=== PATIENT | male | born 1990 | race American Indian/Alaskan Native ===

== ENCOUNTER 2020-01-07 17:08 | Observation (INO) | payer BC ==
[~2020-01-07 17:08] MED LIST: Sodium Chloride 0.9% 1,000 ML IV ONE
[2020-01-07 17:24] LABS: BASE EXCESS ARTERIAL 2 mmol/L ((-2)-(+3)); O2 DELIVERY DEVICE ROOM AIR; O2 SATURATION ARTERIAL 96 % (95-100); PCO2 ARTERIAL 37 mmHg (35-45); PO2 ARTERIAL 81 mmHg (70-100)
[2020-01-07 17:28] LABS: ALLEN TEST pos; O2 FLOW RATE 0
--- NOTE | 2020-01-07 17:52 | EDM.PDOC ---
ED HPI GENERAL MEDICAL PROBLEM - General Stated Complaint: AMBULANCE Time Seen by Provider: 01/07/20 17:48 Source of Information: Reports: Patient History Limitations: Reports: No Limitations - History of Present Illness INITIAL COMMENTS - FREE TEXT/NARRATIVE: This 29 yo male patient was brought to the ED by SLAJosh from the [facility] due to a blood sugar level of 707 at the clinic. The patient reports he has not been feeling well for the past month, but has been attempting to drink extra water and gatorade for possible dehydration. The patient reports he has not had any health problems in the past, but his grandmother has diabetes. The [facility] reports the patient had a negative COVID test on Monday. Today, the patient A1C was 14.6 during the clinic visit. The patient reports he is currently extremely thirsty and feels run down. Onset: Unknown/Unsure Duration: Week(s):, Constant Location: Reports: Generalized Quality: Reports: Other Severity: Moderate Improves with: Reports: None Worsens with: Reports: None Context: Reports: Other - Related Data Allergies Allergy/AdvReac Type Severity Reaction Status Date / Time No Known Allergies Allergy Verified 02/18/15 21:31 Home Meds: Home Meds . [No Known Home Meds] 06/10/13 [History] Past Medical History - Past Health History Medical/Surgical History: Denies Medical/Surgical History Other Gastrointestinal History: Appendix removed - Infectious Disease History Infectious Disease History: Reports: Chicken Pox Social & Family History - Family History Family Medical History: Noncontributory - Tobacco Use Smoking Status *Q: Never Smoker Second Hand Smoke Exposure: Yes - Caffeine Use Caffeine Use: Reports: None - Alcohol Use Date of Last Drink: 01/04/20 - Recreational Drug Use Recreational Drug Use: Yes Recreational Drug Type: Reports: Marijuana/Hashish ED ROS GENERAL - Review of Systems Review Of Systems: Comprehensive ROS is negative, except as noted in HPI. ED EXAM, GENERAL - Physical Exam Exam: See Below Exam Limited By: No Limitations General Appearance: Alert, WD/WN, Moderate Distress, Obese Eye Exam: Bilateral Eye: EOMI, Normal Inspection, PERRL Ears: Normal External Exam, Normal Canal, Hearing Grossly Normal, Normal TMs Nose: Normal Inspection Throat/Mouth: Normal Inspection, Normal Lips, Normal Teeth, Normal Gums, Normal Oropharynx, Normal Voice, No Airway Compromise Head: Atraumatic, Normocephalic Neck: Normal Inspection, Supple, Non-Tender, Full Range of Motion Respiratory/Chest: No Respiratory Distress, Lungs Clear, Normal Breath Sounds, No Accessory Muscle Use, Chest Non-Tender Cardiovascular: Normal Peripheral Pulses, Regular Rate, Rhythm, No Edema, No Gallop, No JVD, No Murmur, No Rub GI/Abdominal: Normal Bowel Sounds, Soft, Non-Tender, No Organomegaly, No Distention, No Abnormal Bruit, No Mass (Male) Exam: Deferred Rectal (Males) Exam: Deferred Back Exam: Normal Inspection, Full Range of Motion, NT Extremities: Normal Inspection, Normal Range of Motion, Non-Tender, Normal Capillary Refill, No Pedal Edema Neurological: Alert, Oriented, CN II-XII Intact, Normal Cognition, Normal Gait, Normal Reflexes, No Motor/Sensory Deficits Psychiatric: Normal Affect, Normal Mood Skin Exam: Warm, Dry, Intact, Normal Color, No Rash Lymphatic: No Adenopathy Course - Vital Signs Last Recorded V/S: Last Vital Signs Temp 36.2 C 01/07/20 17:08 Pulse 109 H 01/07/20 17:08 Resp 18 01/07/20 17:08 BP 158/96 H 01/07/20 17:08 Pulse Ox 97 01/07/20 17:08 - Orders/Labs/Meds Orders: Active Orders 24 hr Category Date Time Status Admission Diagnosis [ADT] Urgent ADT 01/07/20 18:17 Ordered Admission Status [Patient Status] [ADT] Routine ADT 01/07/20 18:17 Ordered Glucose [Blood Glucose Check, Bedside] [RC] ONETIME Care 01/07/20 17:04 Ordered Labs: Laboratory Tests 01/07/20 01/07/20 01/07/20 Range/Units 17:10 17:10 17:20 WBC 11.3 H (5.0-10.0) 10^3/uL RBC 6.01 (4.6-6.2) 10^6/uL Hgb 16.4 (14.0-18.0) g/dL Hct 47.4 (40.0-54.0) % MCV 78.9 L (80-100) fL MCH 27.3 (27.0-34.0) pg MCHC 34.6 (33.0-35.0) g/dL Plt Count 312 (150-450) 10^3/uL Neut % (Auto) 71.7 (42.2-75.2) % Lymph % (Auto) 20.4 L (20.5-50.1) % [place] % (Auto) 6.5 (2-8) % Eos % (Auto) 0.9 L (1.0-3.0) % Baso % (Auto) 0.5 (0.0-1.0) % ABG pH 7.45 (7.35-7.45) ABG pCO2 37 (35-45) mmHg ABG pO2 81 (70-100) mmHg ABG HCO3 25.0 (22-26) mmol/L ABG O2 Saturation 96 (95-100) % ABG Base Excess 2 ((-2)-(+3)) mmol/L [place] Test pos O2 Delivery Device Room air Oxygen Flow Rate 0 Sodium 128 L (136-145) mmol/L Potassium 4.1 (3.5-5.1) mmol/L Chloride 91 L (98-107) mmol/L Carbon Dioxide 25 (21-32) mmol/L Anion Gap 16.1 H (7-13) mEq/L BUN 13 (7-18) mg/dL Creatinine 1.22 (0.70-1.30) mg/dL Est Cr Clr Drug Dosing 99.83 mL/min Estimated GFR (MDRD) > 60 BUN/Creatinine Ratio 10.7 (No establ ref range) Glucose 567 H* (74-99) mg/dL Calcium 9.8 (8.5-10.1) mg/dL Total Bilirubin 1.2 H (0.2-1.0) mg/dL AST 69 H (15-37) U/L ALT 199 H (16-63) U/L Alkaline Phosphatase 211 H (46-116) U/L Total Protein 9.5 H (6.4-8.2) g/dL Albumin 3.8 (3.4-5.0) g/dL Globulin 5.7 Albumin/Globulin Ratio 0.7 Urine Color (YELLOW) Urine Appearance (CLEAR) Urine pH (5.0-9.0) Ur Specific [place] (1.005-1.030) Urine Protein (NEGATIVE) Urine Glucose (UA) (NEGATIVE) Urine Ketones (NEGATIVE) Urine Occult Blood (NEGATIVE) Urine Nitrite (NEGATIVE) Urine Bilirubin (NEGATIVE) Urine Urobilinogen (0.2-1.0) mg/dL Ur Leukocyte Esterase (NEGATIVE) Urine Opiates Screen (NEGATIVE) Ur Oxycodone Screen (NEGATIVE) Urine Methadone Screen (NEGATIVE) Ur Barbiturates Screen (NEGATIVE) U Tricyclic Antidepress (NEGATIVE) Ur Phencyclidine Scrn (NEGATIVE) Ur Amphetamine Screen (NEGATIVE) U Methamphetamines Scrn (NEGATIVE) Urine MDMA Screen (NEGATIVE) U Benzodiazepines Scrn (NEGATIVE) Urine Cocaine Screen (NEGATIVE) U Marijuana (THC) Screen (NEGATIVE) Ketones Positive 01/07/20 01/07/20 Range/Units 17:50 17:50 WBC (5.0-10.0) 10^3/uL RBC (4.6-6.2) 10^6/uL Hgb (14.0-18.0) g/dL Hct (40.0-54.0) % MCV (80-100) fL MCH (27.0-34.0) pg MCHC (33.0-35.0) g/dL Plt Count (150-450) 10^3/uL Neut % (Auto) (42.2-75.2) % Lymph % (Auto) (20.5-50.1) % [place] % (Auto) (2-8) % Eos % (Auto) (1.0-3.0) % Baso % (Auto) (0.0-1.0) % ABG pH (7.35-7.45) ABG pCO2 (35-45) mmHg ABG pO2 (70-100) mmHg ABG HCO3 (22-26) mmol/L ABG O2 Saturation (95-100) % ABG Base Excess ((-2)-(+3)) mmol/L [place] Test O2 Delivery Device Oxygen Flow Rate Sodium (136-145) mmol/L Potassium (3.5-5.1) mmol/L Chloride (98-107) mmol/L Carbon Dioxide (21-32) mmol/L Anion Gap (7-13) mEq/L BUN (7-18) mg/dL Creatinine (0.70-1.30) mg/dL Est Cr Clr Drug Dosing mL/min Estimated GFR (MDRD) BUN/Creatinine Ratio (No establ ref range) Glucose (74-99) mg/dL Calcium (8.5-10.1) mg/dL Total Bilirubin (0.2-1.0) mg/dL AST (15-37) U/L ALT (16-63) U/L Alkaline Phosphatase (46-116) U/L Total Protein (6.4-8.2) g/dL Albumin (3.4-5.0) g/dL Globulin Albumin/Globulin Ratio Urine Color Yellow (YELLOW) Urine Appearance Clear (CLEAR) Urine pH 5.0 (5.0-9.0) Ur Specific [place] 1.010 (1.005-1.030) Urine Protein Negative (NEGATIVE) Urine Glucose (UA) 500 H (NEGATIVE) Urine Ketones 15 H (NEGATIVE) Urine Occult Blood Negative (NEGATIVE) Urine Nitrite Negative (NEGATIVE) Urine Bilirubin Negative (NEGATIVE) Urine Urobilinogen 0.2 (0.2-1.0) mg/dL Ur Leukocyte Esterase Negative (NEGATIVE) Urine Opiates Screen Negative (NEGATIVE) Ur Oxycodone Screen Negative (NEGATIVE) Urine Methadone Screen Negative (NEGATIVE) Ur Barbiturates Screen Negative (NEGATIVE) U Tricyclic Antidepress Negative (NEGATIVE) Ur Phencyclidine Scrn Negative (NEGATIVE) Ur Amphetamine Screen Negative (NEGATIVE) U Methamphetamines Scrn Negative (NEGATIVE) Urine MDMA Screen Negative (NEGATIVE) U Benzodiazepines Scrn Negative (NEGATIVE) Urine Cocaine Screen Negative (NEGATIVE) U Marijuana (THC) Screen Negative (NEGATIVE) Ketones Meds: Medications Discontinued Medications Generic Name Dose Route Start Last Admin Trade Name Freq PRN Reason Stop Dose Admin Sodium Chloride 1,000 mls @ 999 mls/hr 01/07/20 17:04 01/07/20 17:10 Normal Saline IV 01/07/20 18:04 999 mls/hr .BOLUS ONE Administration Departure - Departure Time of Disposition: 18:20 Disposition: DC/Tfer to Acute Hospital 02 Condition: Fair Clinical Impression: Hyperglycemia - Discharge Information *PRESCRIPTION DRUG MONITORING PROGRAM REVIEWED*: Not Applicable *COPY OF PRESCRIPTION DRUG MONITORING REPORT IN PATIENT SCOTT: Not Applicable Care Plan Goals: Discussed the patient's history, examination, lab results and treatments with Dr. Rivera. Dr. Rivera accepted the patient for continued evaluation and management as an observation patient at [facility] in [place]. Sepsis Event Note (ED) - Evaluation Sepsis Screening Result: No Definite Risk - Focused Exam Vital Signs: Vital Signs Temp Pulse Resp BP Pulse Ox 07/28/20 17:08 36.2 C 109 H 18 158/96 H 97 - My Orders Last 24 Hours: My Active Orders 01/07/20 17:04 Glucose [Blood Glucose Check, Bedside] [RC] ONETIME 01/07/20 18:17 Admission Diagnosis [ADT] Urgent Admission Status [Patient Status] [ADT] Routine - Assessment/Plan Last 24 Hours: My Active Orders 01/07/20 17:04 Glucose [Blood Glucose Check, Bedside] [] ONETIME 01/07/20 18:17 Admission Diagnosis [ADT] Urgent Admission Status [Patient Status] [ADT] Routine
[2020-01-07 17:53] LABS: ANION GAP 16.1 mEq/L (7-13); CHLORIDE,CL 91 mmol/L (98-107); SODIUM,NA 128 mmol/L (136-145)
[2020-01-07] MEDS ORDERED: Acetaminophen 325 MG Tab PO PRN (19:26)
--- NOTE | 2020-01-07 19:38 | PCM.HP ---
H&P History of Present Illness - General Date of Service: 01/07/20 Admit Problem/Dx: Admission Diagnosis/Problem Admission Diagnosis/Problem Diabetes mellitus Source of Information: Patient - History of Present Illness Initial Comments - Free Text/Narative: Patient presented to the emergency room referred from the clinic because of hypoglycemia. He indicates that for the past couple of weeks he has been having polyuria, polydipsia and polyphagia. He will has been feeling dehydrated despite drinking a lot of water. His blood sugar was checked and found to be about 700. Patient was given insulin 12 units short acting and sent to the emergency room. Patient has no prior history of diabetes mellitus. There is a family history of diabetes. Denies cough or wheezing. No headache or blurring of vision. No dysuria. No fever chills or rigors. - Related Data Allergies/Adverse Reactions: Allergies Allergy/AdvReac Type Severity Reaction Status Date / Time No Known Allergies Allergy Verified 01/07/20 18:41 Home Medications: Home Meds . [No Known Home Meds] 06/10/13 [History] Past Medical History - Past Health History Medical/Surgical History: Denies Medical/Surgical History Gastrointestinal History: Reports: Cholelithiasis Other Gastrointestinal History: Appendix removed - Infectious Disease History Infectious Disease History: Reports: Chicken Pox - Past Surgical History GI Surgical History: Reports: Cholecystectomy Social & Family History - Family History Family Medical History: Noncontributory - Tobacco Use Smoking Status *Q: Never Smoker Second Hand Smoke Exposure: No - Caffeine Use Caffeine Use: Reports: None - Alcohol Use Number of Drinks Per Day: 1 Date of Last Drink: 01/03/20 Time of Last Drink: 20:00 - Recreational Drug Use Recreational Drug Use: No Recreational Drug Type: Reports: Marijuana/Hashish H&P Review of Systems - Review of Systems: Review Of Systems: See Below General: Reports: Weakness, Fatigue HEENT: Reports: No Symptoms Pulmonary: Reports: No Symptoms Cardiovascular: Reports: No Symptoms Gastrointestinal: Reports: No Symptoms Genitourinary: Reports: No Symptoms Psychiatric: Reports: No Symptoms Neurological: Reports: No Symptoms Exam - Exam Exam: See Below - Vital Signs Vital Signs: Last Vital Signs Temp 36.4 C 01/07/20 18:41 Pulse 100 01/07/20 18:41 Resp 16 01/07/20 18:41 BP 164/103 H 01/07/20 18:41 Pulse Ox 96 01/07/20 18:41 Weight: 154.221 kg - Exam General: Alert, Oriented, Cooperative, Other ( morbid obesity) HEENT: PERRLA, Hearing Intact, Mucosa Moist & [place], Nares Patent, Normal Nasal Septum, Posterior Pharynx Clear, Conjunctiva Clear, EOMI, EACs Clear, TMs Clear Neck: Supple, Trachea Midline, 2 Lungs: Clear to Auscultation, Normal Respiratory Effort Cardiovascular: Regular Rate, Regular Rhythm (Male) Exam: Normal Inspection, Normal Prostate, Circumcised Skin: Warm, Dry, Intact - Patient Data Lab Results Last 24 hrs: Laboratory Results - last 24 hr 01/07/20 01/07/20 01/07/20 Range/Units 17:10 17:10 17:20 WBC 11.3 H (5.0-10.0) 10^3/uL RBC 6.01 (4.6-6.2) 10^6/uL Hgb 16.4 (14.0-18.0) g/dL Hct 47.4 (40.0-54.0) % MCV 78.9 L (80-100) fL MCH 27.3 (27.0-34.0) pg MCHC 34.6 (33.0-35.0) g/dL Plt Count 312 (150-450) 10^3/uL Neut % (Auto) 71.7 (42.2-75.2) % Lymph % (Auto) 20.4 L (20.5-50.1) % [place] % (Auto) 6.5 (2-8) % Eos % (Auto) 0.9 L (1.0-3.0) % Baso % (Auto) 0.5 (0.0-1.0) % ABG pH 7.45 (7.35-7.45) ABG pCO2 37 (35-45) mmHg ABG pO2 81 (70-100) mmHg ABG HCO3 25.0 (22-26) mmol/L ABG O2 Saturation 96 (95-100) % ABG Base Excess 2 ((-2)-(+3)) mmol/L [place] Test pos O2 Delivery Device Room air Oxygen Flow Rate 0 Sodium 128 L (136-145) mmol/L Potassium 4.1 (3.5-5.1) mmol/L Chloride 91 L (98-107) mmol/L Carbon Dioxide 25 (21-32) mmol/L Anion Gap 16.1 H (7-13) mEq/L BUN 13 (7-18) mg/dL Creatinine 1.22 (0.70-1.30) mg/dL Est Cr Clr Drug Dosing 99.83 mL/min Estimated GFR (MDRD) > 60 BUN/Creatinine Ratio 10.7 (No establ ref range) Glucose 567 H* (74-99) mg/dL Calcium 9.8 (8.5-10.1) mg/dL Total Bilirubin 1.2 H (0.2-1.0) mg/dL AST 69 H (15-37) U/L ALT 199 H (16-63) U/L Alkaline Phosphatase 211 H (46-116) U/L Total Protein 9.5 H (6.4-8.2) g/dL Albumin 3.8 (3.4-5.0) g/dL Globulin 5.7 Albumin/Globulin Ratio 0.7 Urine Color (YELLOW) Urine Appearance (CLEAR) Urine pH (5.0-9.0) Ur Specific [place] (1.005-1.030) Urine Protein (NEGATIVE) Urine Glucose (UA) (NEGATIVE) Urine Ketones (NEGATIVE) Urine Occult Blood (NEGATIVE) Urine Nitrite (NEGATIVE) Urine Bilirubin (NEGATIVE) Urine Urobilinogen (0.2-1.0) mg/dL Ur Leukocyte Esterase (NEGATIVE) Urine Opiates Screen (NEGATIVE) Ur Oxycodone Screen (NEGATIVE) Urine Methadone Screen (NEGATIVE) Ur Barbiturates Screen (NEGATIVE) U Tricyclic Antidepress (NEGATIVE) Ur Phencyclidine Scrn (NEGATIVE) Ur Amphetamine Screen (NEGATIVE) U Methamphetamines Scrn (NEGATIVE) Urine MDMA Screen (NEGATIVE) U Benzodiazepines Scrn (NEGATIVE) Urine Cocaine Screen (NEGATIVE) U Marijuana (THC) Screen (NEGATIVE) Ketones Positive 01/07/20 01/07/20 Range/Units 17:50 17:50 WBC (5.0-10.0) 10^3/uL RBC (4.6-6.2) 10^6/uL Hgb (14.0-18.0) g/dL Hct (40.0-54.0) % MCV (80-100) fL MCH (27.0-34.0) pg MCHC (33.0-35.0) g/dL Plt Count (150-450) 10^3/uL Neut % (Auto) (42.2-75.2) % Lymph % (Auto) (20.5-50.1) % [place] % (Auto) (2-8) % Eos % (Auto) (1.0-3.0) % Baso % (Auto) (0.0-1.0) % ABG pH (7.35-7.45) ABG pCO2 (35-45) mmHg ABG pO2 (70-100) mmHg ABG HCO3 (22-26) mmol/L ABG O2 Saturation (95-100) % ABG Base Excess ((-2)-(+3)) mmol/L [place] Test O2 Delivery Device Oxygen Flow Rate Sodium (136-145) mmol/L Potassium (3.5-5.1) mmol/L Chloride (98-107) mmol/L Carbon Dioxide (21-32) mmol/L Anion Gap (7-13) mEq/L BUN (7-18) mg/dL Creatinine (0.70-1.30) mg/dL Est Cr Clr Drug Dosing mL/min Estimated GFR (MDRD) BUN/Creatinine Ratio (No establ ref range) Glucose (74-99) mg/dL Calcium (8.5-10.1) mg/dL Total Bilirubin (0.2-1.0) mg/dL AST (15-37) U/L ALT (16-63) U/L Alkaline Phosphatase (46-116) U/L Total Protein (6.4-8.2) g/dL Albumin (3.4-5.0) g/dL Globulin Albumin/Globulin Ratio Urine Color Yellow (YELLOW) Urine Appearance Clear (CLEAR) Urine pH 5.0 (5.0-9.0) Ur Specific [place] 1.010 (1.005-1.030) Urine Protein Negative (NEGATIVE) Urine Glucose (UA) 500 H (NEGATIVE) Urine Ketones 15 H (NEGATIVE) Urine Occult Blood Negative (NEGATIVE) Urine Nitrite Negative (NEGATIVE) Urine Bilirubin Negative (NEGATIVE) Urine Urobilinogen 0.2 (0.2-1.0) mg/dL Ur Leukocyte Esterase Negative (NEGATIVE) Urine Opiates Screen Negative (NEGATIVE) Ur Oxycodone Screen Negative (NEGATIVE) Urine Methadone Screen Negative (NEGATIVE) Ur Barbiturates Screen Negative (NEGATIVE) U Tricyclic Antidepress Negative (NEGATIVE) Ur Phencyclidine Scrn Negative (NEGATIVE) Ur Amphetamine Screen Negative (NEGATIVE) U Methamphetamines Scrn Negative (NEGATIVE) Urine MDMA Screen Negative (NEGATIVE) U Benzodiazepines Scrn Negative (NEGATIVE) Urine Cocaine Screen Negative (NEGATIVE) U Marijuana (THC) Screen Negative (NEGATIVE) Ketones Result Diagrams: 01/07/20 17:10 01/07/20 17:10 Problem List Initiated/Reviewed/Updated: Yes Orders Last 24hrs: Active Orders 24 hr Category Date Time Status Admission Diagnosis [ADT] Urgent ADT 01/07/20 18:17 Ordered Admission Status [Patient Status] [ADT] Routine ADT 01/07/20 18:17 Active Patient Status [ADT] Routine ADT 01/07/20 19:26 Active Blood Glucose Check, Bedside [RC] QIDACANDBED Care 01/07/20 19:26 Active Diabetes Education [RC] Click to Edit Care 01/07/20 19:29 Active Glucose [Blood Glucose Check, Bedside] [RC] ONETIME Care 01/07/20 17:04 Active Intake and Output [RC] QSHIFT Care 01/07/20 19:27 Active Oxygen Therapy [RC] PRN Care 01/07/20 19:26 Active Up ad Janet [RC] ASDIRECTED Care 01/07/20 19:26 Active VTE/DVT Education [RC] PER UNIT ROUTINE Care 01/07/20 19:26 Active Vital Signs [RC] Q4H Care 01/07/20 19:26 Active Consistent Carbohydrate Diet [DIET] Diet 01/07/20 Dinner Active BASIC METABOLIC PANEL,BMP [CHEM] AM Lab 01/08/20 05:11 Ordered Acetaminophen [Tylenol] Med 01/07/20 19:26 Ordered 650 mg PO Q4H PRN Enoxaparin [Lovenox] Med 01/08/20 09:00 Ordered 40 mg SUBCUT DAILY Insulin Glarg,Human.Rec.Analog [LantUS] Med 01/07/20 21:00 Ordered 30 unit SUBCUT BEDTIME Insulin Lispro [HumaLOG] Med 01/08/20 08:00 Ordered 10 unit SUBCUT TIDMEALS Insulin Lispro [HumaLOG] Med 01/07/20 19:30 Ordered See Protocol SUBCUT ASDIRECTED Sodium Chloride 0.9% [Normal Saline] 1,000 ml Med 01/07/20 19:30 Ordered IV ASDIRECTED Glucose Management Sub Q Reflex [OM.PC] Click to Edit Oth 01/07/20 19:26 Ordered Resuscitation Status Routine Resus Stat 01/07/20 19:26 Ordered Medication Orders Acetaminophen (Tylenol) 650 mg PO Q4H PRN PRN Reason: Pain (Mild 1-3)/fever Enoxaparin Sodium (Lovenox) 40 mg SUBCUT DAILY AVEL Sodium Chloride (Normal Saline) 1,000 mls @ 200 mls/hr IV ASDIRECTED AVEL Insulin Glargine (Lantus) 30 unit SUBCUT BEDTIME AVEL Insulin Human Lispro (Humalog) 10 unit SUBCUT TIDMEALS AVEL Insulin Human Lispro (Humalog) 0 unit SUBCUT ASDIRECTED AVEL; Protocol Assessment/Plan Comment:: Assessmen/plan #. Diabetes mellitus type 2 Patient has no prior history of diabetes. Newly diagnosed Hemoglobin A1c was 14. #. Hyponatremia Serum sodium is 128 This is as a result of hypoglycemia #. Morbid obesity BMI is 43 Plan: Admit patient to medical floor Start patient on aggressive intravenous fluid with normal saline going at 200 mL an hour Obtain repeat basic metabolic panel Give patient insulin Lantus 30 units now Start insulin NovoLog 10 units with meals Insulin sliding scale We'll plan for diabetic education. Patient's medical chart reviewed. Discussed with emergency room physician hearing aid assistant
[2020-01-07] MEDS: Insulin Glarg,Human.Rec.Analog 100 Unit/ML SUBCUT SCH (20:01)
[2020-01-07] MEDS: Sodium Chloride 0.9% 1,000 ML IV SCH (20:04)
[2020-01-07] MEDS: Insulin Lispro 100 Units/ML 3 ML Vial SUBCUT SCH (20:55)
[2020-01-08] MEDS: Sodium Chloride 0.9% 1,000 ML IV SCH ×3 (03:11→17:11)
[2020-01-08 07:00] LABS: ANION GAP 9.9 mEq/L (7-13); CHLORIDE,CL 99 mmol/L (98-107); SODIUM,NA 134 mmol/L (136-145)
[2020-01-08] MEDS: Insulin Lispro 100 Units/ML 3 ML Vial SUBCUT SCH ×7 (09:14→20:52)
[2020-01-08] MEDS: Enoxaparin 40 MG/0.4 ML Syringe SUBCUT SCH (09:16)
--- NOTE | 2020-01-08 09:56 | PCM.PN ---
- General Info Date of Service: 01/08/20 Subjective Update: Doing well, blood sugars improved No hypoglycemia symptoms No shortness of breath, no chest pain Functional Status: Reports: Tolerating Diet - Review of Systems General: Denies: Fever Pulmonary: Denies: Shortness of Breath Cardiovascular: Denies: Chest Pain, Edema Gastrointestinal: Denies: Abdominal Pain Genitourinary: Denies: Dysuria - Patient Data Vitals - Most Recent: Last Vital Signs Temp 99.1 F 01/08/20 08:00 Pulse 93 01/08/20 08:00 Resp 20 01/08/20 08:00 BP 130/85 01/08/20 08:00 Pulse Ox 99 01/08/20 08:00 Weight - Most Recent: 340 lb I&O - Last 24 Hours: Intake & Output 01/07/20 01/08/20 01/08/20 22:59 06:59 14:59 Intake Total 550 1805 609 Output Total 1100 Balance 550 705 609 Lab Results Last 24 Hours: Laboratory Results - last 24 hr 01/07/20 01/07/20 01/07/20 Range/Units 17:10 17:10 17:20 WBC 11.3 H (5.0-10.0) 10^3/uL RBC 6.01 (4.6-6.2) 10^6/uL Hgb 16.4 (14.0-18.0) g/dL Hct 47.4 (40.0-54.0) % MCV 78.9 L (80-100) fL MCH 27.3 (27.0-34.0) pg MCHC 34.6 (33.0-35.0) g/dL Plt Count 312 (150-450) 10^3/uL Neut % (Auto) 71.7 (42.2-75.2) % Lymph % (Auto) 20.4 L (20.5-50.1) % [place] % (Auto) 6.5 (2-8) % Eos % (Auto) 0.9 L (1.0-3.0) % Baso % (Auto) 0.5 (0.0-1.0) % ABG pH 7.45 (7.35-7.45) ABG pCO2 37 (35-45) mmHg ABG pO2 81 (70-100) mmHg ABG HCO3 25.0 (22-26) mmol/L ABG O2 Saturation 96 (95-100) % ABG Base Excess 2 ((-2)-(+3)) mmol/L [place] Test pos O2 Delivery Device Room air Oxygen Flow Rate 0 Sodium 128 L (136-145) mmol/L Potassium 4.1 (3.5-5.1) mmol/L Chloride 91 L (98-107) mmol/L Carbon Dioxide 25 (21-32) mmol/L Anion Gap 16.1 H (7-13) mEq/L BUN 13 (7-18) mg/dL Creatinine 1.22 (0.70-1.30) mg/dL Est Cr Clr Drug Dosing 99.83 mL/min Estimated GFR (MDRD) > 60 BUN/Creatinine Ratio 10.7 (No establ ref range) Glucose 567 H* (74-99) mg/dL POC Glucose (70-105) mg/dl Calcium 9.8 (8.5-10.1) mg/dL Total Bilirubin 1.2 H (0.2-1.0) mg/dL AST 69 H (15-37) U/L ALT 199 H (16-63) U/L Alkaline Phosphatase 211 H (46-116) U/L Total Protein 9.5 H (6.4-8.2) g/dL Albumin 3.8 (3.4-5.0) g/dL Globulin 5.7 Albumin/Globulin Ratio 0.7 Urine Color (YELLOW) Urine Appearance (CLEAR) Urine pH (5.0-9.0) Ur Specific [place] (1.005-1.030) Urine Protein (NEGATIVE) Urine Glucose (UA) (NEGATIVE) Urine Ketones (NEGATIVE) Urine Occult Blood (NEGATIVE) Urine Nitrite (NEGATIVE) Urine Bilirubin (NEGATIVE) Urine Urobilinogen (0.2-1.0) mg/dL Ur Leukocyte Esterase (NEGATIVE) Urine Opiates Screen (NEGATIVE) Ur Oxycodone Screen (NEGATIVE) Urine Methadone Screen (NEGATIVE) Ur Barbiturates Screen (NEGATIVE) U Tricyclic Antidepress (NEGATIVE) Ur Phencyclidine Scrn (NEGATIVE) Ur Amphetamine Screen (NEGATIVE) U Methamphetamines Scrn (NEGATIVE) Urine MDMA Screen (NEGATIVE) U Benzodiazepines Scrn (NEGATIVE) Urine Cocaine Screen (NEGATIVE) U Marijuana (THC) Screen (NEGATIVE) Ketones Positive 01/07/20 01/07/2020 Range/Units 17:50 17:50 20:03 WBC (5.0-10.0) 10^3/uL RBC (4.6-6.2) 10^6/uL Hgb (14.0-18.0) g/dL Hct (40.0-54.0) % MCV (80-100) fL MCH (27.0-34.0) pg MCHC (33.0-35.0) g/dL Plt Count (150-450) 10^3/uL Neut % (Auto) (42.2-75.2) % Lymph % (Auto) (20.5-50.1) % [place] % (Auto) (2-8) % Eos % (Auto) (1.0-3.0) % Baso % (Auto) (0.0-1.0) % ABG pH (7.35-7.45) ABG pCO2 (35-45) mmHg ABG pO2 (70-100) mmHg ABG HCO3 (22-26) mmol/L ABG O2 Saturation (95-100) % ABG Base Excess ((-2)-(+3)) mmol/L [place] Test O2 Delivery Device Oxygen Flow Rate Sodium (136-145) mmol/L Potassium (3.5-5.1) mmol/L Chloride (98-107) mmol/L Carbon Dioxide (21-32) mmol/L Anion Gap (7-13) mEq/L BUN (7-18) mg/dL Creatinine (0.70-1.30) mg/dL Est Cr Clr Drug Dosing mL/min Estimated GFR (MDRD) BUN/Creatinine Ratio (No establ ref range) Glucose (74-99) mg/dL POC Glucose 390 H (70-105) mg/dl Calcium (8.5-10.1) mg/dL Total Bilirubin (0.2-1.0) mg/dL AST (15-37) U/L ALT (16-63) U/L Alkaline Phosphatase (46-116) U/L Total Protein (6.4-8.2) g/dL Albumin (3.4-5.0) g/dL Globulin Albumin/Globulin Ratio Urine Color Yellow (YELLOW) Urine Appearance Clear (CLEAR) Urine pH 5.0 (5.0-9.0) Ur Specific [place] 1.010 (1.005-1.030) Urine Protein Negative (NEGATIVE) Urine Glucose (UA) 500 H (NEGATIVE) Urine Ketones 15 H (NEGATIVE) Urine Occult Blood Negative (NEGATIVE) Urine Nitrite Negative (NEGATIVE) Urine Bilirubin Negative (NEGATIVE) Urine Urobilinogen 0.2 (0.2-1.0) mg/dL Ur Leukocyte Esterase Negative (NEGATIVE) Urine Opiates Screen Negative (NEGATIVE) Ur Oxycodone Screen Negative (NEGATIVE) Urine Methadone Screen Negative (NEGATIVE) Ur Barbiturates Screen Negative (NEGATIVE) U Tricyclic Antidepress Negative (NEGATIVE) Ur Phencyclidine Scrn Negative (NEGATIVE) Ur Amphetamine Screen Negative (NEGATIVE) U Methamphetamines Scrn Negative (NEGATIVE) Urine MDMA Screen Negative (NEGATIVE) U Benzodiazepines Scrn Negative (NEGATIVE) Urine Cocaine Screen Negative (NEGATIVE) U Marijuana (THC) Screen Negative (NEGATIVE) Ketones 01/07/20 01/08/20 01/08/20 Range/Units 20:51 06:17 07:39 WBC (5.0-10.0) 10^3/uL RBC (4.6-6.2) 10^6/uL Hgb (14.0-18.0) g/dL Hct (40.0-54.0) % MCV (80-100) fL MCH (27.0-34.0) pg MCHC (33.0-35.0) g/dL Plt Count (150-450) 10^3/uL Neut % (Auto) (42.2-75.2) % Lymph % (Auto) (20.5-50.1) % [place] % (Auto) (2-8) % Eos % (Auto) (1.0-3.0) % Baso % (Auto) (0.0-1.0) % ABG pH (7.35-7.45) ABG pCO2 (35-45) mmHg ABG pO2 (70-100) mmHg ABG HCO3 (22-26) mmol/L ABG O2 Saturation (95-100) % ABG Base Excess ((-2)-(+3)) mmol/L [place] Test O2 Delivery Device Oxygen Flow Rate Sodium 134 L (136-145) mmol/L Potassium 3.9 (3.5-5.1) mmol/L Chloride 99 (98-107) mmol/L Carbon Dioxide 29 (21-32) mmol/L Anion Gap 9.9 (7-13) mEq/L BUN 12 (7-18) mg/dL Creatinine 0.92 (0.70-1.30) mg/dL Est Cr Clr Drug Dosing 132.38 mL/min Estimated GFR (MDRD) > 60 BUN/Creatinine Ratio (No establ ref range) Glucose 336 H (74-99) mg/dL POC Glucose 348 H 290 H (70-105) mg/dl Calcium 8.2 L D (8.5-10.1) mg/dL Total Bilirubin (0.2-1.0) mg/dL AST (15-37) U/L ALT (16-63) U/L Alkaline Phosphatase (46-116) U/L Total Protein (6.4-8.2) g/dL Albumin (3.4-5.0) g/dL Globulin Albumin/Globulin Ratio Urine Color (YELLOW) Urine Appearance (CLEAR) Urine pH (5.0-9.0) Ur Specific [place] (1.005-1.030) Urine Protein (NEGATIVE) Urine Glucose (UA) (NEGATIVE) Urine Ketones (NEGATIVE) Urine Occult Blood (NEGATIVE) Urine Nitrite (NEGATIVE) Urine Bilirubin (NEGATIVE) Urine Urobilinogen (0.2-1.0) mg/dL Ur Leukocyte Esterase (NEGATIVE) Urine Opiates Screen (NEGATIVE) Ur Oxycodone Screen (NEGATIVE) Urine Methadone Screen (NEGATIVE) Ur Barbiturates Screen (NEGATIVE) U Tricyclic Antidepress (NEGATIVE) Ur Phencyclidine Scrn (NEGATIVE) Ur Amphetamine Screen (NEGATIVE) U Methamphetamines Scrn (NEGATIVE) Urine MDMA Screen (NEGATIVE) U Benzodiazepines Scrn (NEGATIVE) Urine Cocaine Screen (NEGATIVE) U Marijuana (THC) Screen (NEGATIVE) Ketones Med Orders - Current: Current Medications Acetaminophen (Tylenol) 650 mg PO Q4H PRN PRN Reason: Pain (Mild 1-3)/fever Enoxaparin Sodium (Lovenox) 40 mg SUBCUT DAILY [facility] Last Admin: 01/08/20 09:16 Dose: 40 mg Documented by: Sodium Chloride (Normal Saline) 1,000 mls @ 100 mls/hr IV ASDIRECTED AVEL Last Admin: 01/08/20 08:12 Dose: 200 mls/hr Documented by: Insulin Glargine (Lantus) 30 unit SUBCUT BEDTIME [facility] Last Admin: 01/07/20 20:01 Dose: 30 units Documented by: Insulin Human Lispro (Humalog) 10 unit SUBCUT TIDMEALS [facility] Last Admin: 01/08/20 09:14 Dose: 10 units Documented by: Insulin Human Lispro (Humalog) 0 unit SUBCUT ASDIRECTED [facility]; Protocol Last Admin: 01/08/20 09:15 Dose: 3 units Documented by: Discontinued Medications Sodium Chloride (Normal Saline) 1,000 mls @ 999 mls/hr IV .BOLUS ONE Stop: 01/07/20 18:04 Last Admin: 01/07/20 17:10 Dose: 999 mls/hr Documented by: - Exam General: Alert, Oriented Neck: Supple Lungs: Clear to Auscultation, Normal Respiratory Effort Cardiovascular: Regular Rate, Regular Rhythm GI/Abdominal Exam: Normal Bowel Sounds, Soft, Other Extremities: No Pedal Edema Neurological: No New Focal Deficit Psy/Mental Status: Alert, Normal Affect, Normal Mood Sepsis Event Note - Evaluation Sepsis Screening Result: No Definite Risk - Focused Exam Vital Signs: Vital Signs Temp Pulse Resp BP Pulse Ox 01/08/20 08:00 99.1 F 93 20 130/85 99 Date Exam was Performed: 01/08/20 Time Exam was Performed: 09:53 - Problem List & Annotations (1) Hyponatremia SNOMED Code(s): 40525636 Code(s): E87.1 - HYPO-OSMOLALITY AND HYPONATREMIA Status: Acute Current Visit: Yes (2) Hyperglycemia SNOMED Code(s): 63739406 Code(s): R73.9 - HYPERGLYCEMIA, UNSPECIFIED Status: Acute Current Visit: No - Problem List Review Problem List Initiated/Reviewed/Updated: Yes - Plan Plan:: 9-year-old with family history of diabetes in the grandmother presented with elevated blood sugars, elevated hemoglobin A1c #. Diabetes mellitus type 1, new diagnosis Patient has no prior history of diabetes. Hemoglobin A1c was 14. Continue treatment with IV fluids, decrease rate Treat with Lantus, Humalog with meals, supplemental insulin Discussed importance of diabetes control Discussed recognition and treatment of hypoglycemia Plan for discharge home with subcutaneous Lantus or Levemir #. Hyponatremia Serum sodium is 128 on admission This is as a result of hyperglycemia Proved Continue IV hydration #. Morbid obesity BMI is 43 Will have renal dietitian follow-up d/w dr. Rivera
[2020-01-08] MEDS: Insulin Glarg,Human.Rec.Analog 100 Unit/ML SUBCUT SCH (20:50)
[2020-01-09 07:46] VITALS: BP 139/80; PULSE 72
--- NOTE | 2020-01-09 09:39 | PCM.DCSUM1 ---
Discharge Summary - Hospital Course Free Text/Narrative:: Hyperglycemia 29-year-old with family history of diabetes in the grandmother presented with elevated blood sugars, elevated hemoglobin A1c #. Diabetes mellitus type 1, new diagnosis Patient has no prior history of diabetes. Hemoglobin A1c was 14. Treated with IVF, Lantus, Humalog with meals, supplemental insulin Discussed importance of diabetes control Discussed recognition and treatment of hypoglycemia Plan for discharge home with subcutaneous Lantus #. Hyponatremia Serum sodium is 128 on admission This is as a result of hyperglycemia Improved #. 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 Diagnosis: Stroke: No - Discharge Data Discharge Date: 01/09/20 Discharge Disposition: Home, Self-Care 01 Condition: Stable - Referral to Home Health Primary Care Physician: PCP Unobtainable - Discharge Diagnosis/Problem(s) (1) Hyponatremia SNOMED Code(s): 87996135 ICD Code: E87.1 - HYPO-OSMOLALITY AND HYPONATREMIA Status: Acute Current Visit: Yes (2) Hyperglycemia SNOMED Code(s): 68497753 ICD Code: R73.9 - HYPERGLYCEMIA, UNSPECIFIED Status: Acute Current Visit: No - Patient Instructions Diet: Heart Healthy Diet Activity: As Tolerated - Discharge Plan *PRESCRIPTION DRUG MONITORING PROGRAM REVIEWED*: Not Applicable *COPY OF PRESCRIPTION DRUG MONITORING REPORT IN PATIENT SCOTT: Not Applicable Prescriptions/Med Rec: Insulin Glarg,Human.Rec.Analog [Lantus] 30 unit SUBCUT BEDTIME #1 pen Home Medications: Home Meds Insulin Glarg,Human.Rec.Analog [Lantus] 30 unit SUBCUT BEDTIME #1 pen 01/09/20 [Rx] Oxygen Therapy Mode: Room Air Patient Handouts: Insulin Treatment for Diabetes Mellitus, Carbohydrate Counting for Diabetes Mellitus, Pediatric, Diabetes Mellitus and Foot Care, Tips for Eating Away From Home If You Have Diabetes, Preventing Type 2 Diabetes Mellitus, Living With Diabetes, Diabetic Ketoacidosis, Hyperglycemia, Hyperglycemia, [id number], Diabetes Basics, Type 2 Diabetes Mellitus, Self Care, Adult, [id number], Type 2 Diabetes Mellitus, Self Care, Pediatric, [id number], Form - Diabetes Action Plan, Preventing Diabetes Mellitus Complications, Type 2 Diabetes Mellitus, Diagnosis, Adult, [id number], Preventing Diabetic Ketoacidosis, Hypoglycemia, [id number] Referrals: PCP,Unobtain [Primary Care Provider] - - Discharge Summary/Plan Comment DC Time >30 min.: No - General Info Date of Service: 01/09/20 Subjective Update: Doing well, blood sugars improved No hypoglycemia symptoms No shortness of breath, no chest pain Functional Status: Reports: Tolerating Diet - Review of Systems General: Denies: Fever Pulmonary: Denies: Shortness of Breath Cardiovascular: Denies: Chest Pain, Edema - Patient Data Vitals - Most Recent: Last Vital Signs Temp 97.6 F 01/09/20 07:46 Pulse 72 01/09/20 07:46 Resp 20 01/09/20 07:46 BP 139/80 01/09/20 07:46 Pulse Ox 100 01/09/20 07:46 Weight - Most Recent: 340 lb I&O - Last 24 hours: Intake & Output 01/08/20 01/09/20 01/09/20 22:59 06:59 14:59 Intake Total 2420 Output Total 600 Balance 1820 Lab Results - Last 24 hrs: Laboratory Results - last 24 hr 01/07/20 01/08/20 01/08/20 Range/Units 17:06 11:27 16:53 POC Glucose > 500 H* 290 H 280 H (70-105) mg/dl 01/08/20 01/09/20 Range/Units 20:45 07:53 POC Glucose 289 H 245 H (70-105) mg/dl Med Orders - Current: Current Medications Acetaminophen (Tylenol) 650 mg PO Q4H PRN PRN Reason: Pain (Mild 1-3)/fever Enoxaparin Sodium (Lovenox) 40 mg SUBCUT DAILY [facility] Last Admin: 01/08/20 09:16 Dose: 40 mg Documented by: Insulin Glargine (Lantus) 30 unit SUBCUT BEDTIME [facility] Last Admin: 01/08/20 20:50 Dose: 30 units Documented by: Insulin Human Lispro (Humalog) 10 unit SUBCUT TIDMEALS [facility] Last Admin: 01/08/20 17:12 Dose: 10 units Documented by: Insulin Human Lispro (Humalog) 0 unit SUBCUT ASDIRECTED [facility]; Protocol Last Admin: 01/08/20 20:52 Dose: 3 units Documented by: Discontinued Medications Sodium Chloride (Normal Saline) 1,000 mls @ 999 mls/hr IV .BOLUS ONE Stop: 01/07/20 18:04 Last Admin: 01/07/20 17:10 Dose: 999 mls/hr Documented by: Sodium Chloride (Normal Saline) 1,000 mls @ 100 mls/hr IV ASDIRECTED [facility] Last Admin: 01/08/20 17:11 Dose: 100 mls/hr Documented by: - Exam General: Reports: Alert, Oriented Neck: Reports: Supple Lungs: Reports: Clear to Auscultation, Normal Respiratory Effort Cardiovascular: Reports: Regular Rate, Regular Rhythm Extremities: No: Pedal Edema
[2020-01-09] MEDS: Insulin Lispro 100 Units/ML 3 ML Vial SUBCUT SCH ×3 (10:43→12:24)
[2020-01-09] MEDS: Enoxaparin 40 MG/0.4 ML Syringe SUBCUT SCH (10:43)
== END 2020-01-09 12:25 | disposition home or self-care (01) ==
LOC: DL.ED 17:08 → DL.MS 18:17
PROVIDERS: ADMIT Hospitalist; ATTEND Internal Medicine
DX: E10.9 Type 1 diabetes mellitus without complications (principal); E87.1 Hypo-osmolality and hyponatremia; E66.01 Morbid (severe) obesity due to excess calories; Z68.41 Body mass index [BMI] 40.0-44.9, adult; Z83.3 Family history of diabetes mellitus
CPT/HCPCS: 36415; 36600; 80048; 80053; 80305; 81003; 82009; 82803; 82962; 85025; 96360; 96361; 96372; 99285; G0378; J1650; J1815; J7030; 99284